=== PATIENT | female | born 1960 | race African-American/Black ===

== ENCOUNTER 2019-06-22 15:14 | Inpatient (IN) | payer OTHER ==
[~2019-06-22] VITALS: Ht 162.6 cm; Wt 63.0 kg
--- NOTE | 2019-06-22 15:14 | NUR ---
PT PLACED IN BED 11 BY EMS.
[2019-06-22 15:19] VITALS: BP 140/89
--- NOTE | 2019-06-22 15:22 | NUR ---
DR. WEAVER IS EVALUATING PT AT BEDSIDE.
--- NOTE | 2019-06-22 15:22 | NUR ---
Telepsych request made for patient to speak with psychiatrist.
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
--- NOTE | 2019-06-22 15:35 | NUR ---
ermd at bedside
--- NOTE | 2019-06-22 15:40 | NUR ---
PSYCHIATRIST IS EVALUATING PT VIA TELEPSYCH.
--- NOTE | 2019-06-22 15:46 | NUR ---
PT REFUSED ANY FURTHER TREATMENT AT THIS TIME INCLUDING BLOOD WORK, URINE ANALYSIS.
--- NOTE | 2019-06-22 15:52 | NUR ---
Glenn sheldon in ED - 06/22/19 at 1859 by ESTEFANIA PT IS BACK FROM CT AND XRAY VIA WHEELCHAIR.
[2019-06-22] MEDS ORDERED: IBUPROFEN 600 MG TAB PO ONE (16:10)
--- NOTE | 2019-06-22 16:19 | NUR ---
PT DECLINED PAIN RX IBUPROFEN, MEDICATION WASTED AND DR. WEAVER MADE AWARE.
[2019-06-22] MEDS ORDERED: NACL 0.9% 1,000 ML IV ONE (16:25)
[2019-06-22 16:49] LABS: BASOPHILS % (AUTO) 0.7 % (0.0-2.0); EOSINOPHILS # (AUTO) 0.1 K/uL (0-0.4); EOSINOPHILS % (AUTO) 1.5 % (0.0-4.0); HEMOGLOBIN 13.4 g/dL (12.0-16.0); LYMPHOCYTES # (AUTO) 1.6 K/uL (2.5-16.5); LYMPHOCYTES % (AUTO) 25.2 % (20.5-51.1); MEAN CORPUSCULAR HEMOGLOBIN 30 pg (27-31); MEAN CORPUSCULAR HGB CONC 34 g/dL (33-37); MEAN CORPUSCULAR VOLUME 88.7 fL (80-94); MONOCYTES # (AUTO) 0.4 K/uL (0.8-1.0); MONOCYTES % (AUTO) 6.6 % (1.7-9.3); NEUTROPHILS # (AUTO) 4.2 K/uL (1.8-7.7); PLATELET COUNT (AUTO) 209 K/uL (140-450); RED BLOOD CELL COUNT(AUTO) 4.51 MIL/uL (4.20-5.40); RED CELL DISTRIBUTION WIDTH 12.8 % (11.6-13.7); WHITE BLOOD COUNT (AUTO) 6.4 K/uL (4.8-10.8)
[2019-06-22 16:55] LABS: APPEARANCE,URINE CLEAR (CLEAR); BILIRUBIN,URINE 2+ (NEGATIVE); BLOOD, URINE 2+ (NEGATIVE); COLOR,URINE YELLOW (YELLOW); LEUKOCYTE ESTERASE ,URINE TRACE (NEGATIVE); NITRITE, URINE NEGATIVE (NEGATIVE); PH,URINE 5.5 (5.0-9.0); UGLUCOSE NEGATIVE (NEGATIVE)
[2019-06-22 16:59] LABS: BARBITURATE, URINE NEGATIVE ng/ml (NEG <=200); BENZODIAZEPINE, URINE NEGATIVE ng/mL (NEG <=200); CANNABINOID, URINE NEGATIVE ng/mL (NEG <=50); COCAINE, URINE NEGATIVE ng/mL (NEG <=300); OPIATE, URINE NEGATIVE ng/mL (NEG <=2000); PHENCYCLIDINE SCREEN,URINE NEGATIVE ng/mL (NEG <=25)
[2019-06-22 17:02] LABS: RBC,URINE 11-20 (MOD) /HPF (0-5)
[2019-06-22 17:06] LABS: ALBUMIN 3.8 g/dL (3.4-5.0); ANION GAP 12.1 (8-16); ASPARTATE AMINOTRANSFERASE 15 U/L (15-37); CARBON DIOXIDE 28.9 mmol/L (21-32); CHLORIDE 107 mmol/L (98-107); CREATININE 0.8 mg/dL (0.6-1.3); GFR ARICAN-AMERICAN 95 mL/min (>90); GLUCOSE 102 mg/dL (74-106); SODIUM SERUM 144 mmol/L (136-145); TOTAL BILIRUBIN 0.3 mg/dL (0.0-1.0); UREA NITROGEN, BLOOD 15 mg/dL (7-18)
[2019-06-22 17:07] LABS: ACETAMINOPHEN < 0.5 ug/ml (10-30); SALICYLATE < 2.8 mg/dL (2.8-20.0)
--- NOTE | 2019-06-22 17:33 | NUR ---
REGULAR DIET ORDERED PER DR. WEAVER ORDER. CALLED DIETARY AND LEFT VOICEMAIL.
[2019-06-22] MEDS ORDERED: SERTRALINE 50 MG TAB PO ONE (17:35)
[2019-06-22] MEDS ORDERED: cefTRIAXone 1,000 MG VIAL ONE (17:42)
--- NOTE | 2019-06-22 18:01 | NUR ---
PT REFUSED TO TAKE ZOLOFT. DR. WEAVER NOTIFIED.
--- NOTE | 2019-06-22 18:06 | NUR ---
ZOLOFT 50MG RETURNED TO [employer].
[2019-06-22] MEDS ORDERED: ONDANSETRON 4 MG/2 ML VIAL IM/IVP PRN (18:20)
[2019-06-22] MEDS ORDERED: DOCUSATE SODIUM 100 MG GELCAP PO PRN (18:20)
--- NOTE | 2019-06-22 18:33 | NUR ---
PT TAKEN TO CT SCAN AND XRAY VIA WHEELCHAIR ASSISTED BY PRAWN TRAWLER HAND.
--- NOTE | 2019-06-22 18:40 | NUR ---
pt back to bed by ct personnel
[2019-06-22 18:52] LABS: PROTHROMBIN TIME 10.5 secs (10.8-13.4)
[2019-06-22 18:57] LABS: MAGNESIUM 2.1 mg/dL (1.8-2.4); PHOSPHORUS 3.4 mg/dL (2.5-4.9); THYROID STIMULATING HORMONE 0.52 uIU/mL (0.34-3.74)
[2019-06-22 19:20] VITALS: BP 181/99
[2019-06-22] MEDS: NACL 0.9% 1,000 ML IV SCH ×2 (19:20→21:17)
--- NOTE | 2019-06-22 19:20 | NUR ---
Patient will be admitted to care of DRUG INDUCED DELIRIUM. Admited to TELEMETRY. Will go to room 110A. Belongings list completed. Report to BREONNA BE.
--- NOTE | 2019-06-22 19:20 | NUR ---
ADMITTED A 58F FROM ER . CAME BY MONIKA. PT IS ON TELE MONITOR. AWAKE, ALERT AND ORIENTED X 3. INITIALLY REFUSED TELE MONITOR BUT ABLE TO PUT IT IN. VITAL SIGNS TAKEN. BP ELEVATED. BUT PT IS ASYMPTOMATIC. WILL LET HER REST FOR FEW MINUTES AND WILL RECHECK BP AGAIN. IVF INFUSING ON THE LT WRIST G#22. REFUSED TO HAVE SKIN CHECK AT THIS TIME. PT REFUSED TO BE ASK FOR ANY MEDICAL HISTORY. PT IN COMFORTABLE POSITION. CALL LIGHT WIHTIN REACH WILL CONTINUE TO MONITOR .
[2019-06-22] MEDS ORDERED: LISINOPRIL 5 MG TAB PO ONE (21:20)
--- NOTE | 2019-06-22 21:20 | NUR ---
BP STILL ELEVATED 170/109. CALLED DR. JUAREZ MADE AWARE. WILL ORDER MEDS.
[2019-06-22] MEDS: ACETAMINOPHEN 325 MG TAB PO PRN (21:50)
--- NOTE | 2019-06-22 21:50 | NUR ---
PT HAD SOME CRACKERS , SOUP AND APPLE JUICE REQUESTED.
--- NOTE | 2019-06-22 22:30 | NUR ---
GOT UP TO THE BATHROOM AND VOIDED. NO C/O ANY MORE HEADACHE NOTED.
[2019-06-22 23:55] VITALS: BP 155/99
--- NOTE | 2019-06-22 23:55 | NUR ---
LATEST BP TAKEN RESULT 155/99. NO C/O ANY PAIN NOTED.
--- NOTE | 2019-06-23 01:30 | NUR ---
PT REQUESTED AGAIN FOR SOME SOUP, JUICE AND PUDDING.
--- NOTE | 2019-06-23 03:50 | NUR ---
MADE ROUNDS. PT IS ASLEEP. NO S/S OF ANY DISCOMFORT NOTED.
[2019-06-23] MEDS: ACETAMINOPHEN 325 MG TAB PO PRN (04:26)
--- NOTE | 2019-06-23 04:26 | NUR ---
PT HAD SOME JUICE AND C/O MILD HEADACHE. MEDICATED WITH TYLENOL PO ORDERED. WILL CONTINUE TO MONITOR.
[2019-06-23 04:28] VITALS: BP 156/78
--- NOTE | 2019-06-23 06:00 | NUR ---
PT IS ASLEEP. WITH IVF INFUSING WELL.
--- NOTE | 2019-06-23 06:25 | NUR ---
PT REFUSED BLOOD DRAW THIS AM. TOLD LIBRARY SERVICES COORDINATOR TO COME BACK LATER FOR PT SOMETIMES CHANGE MIND.
--- NOTE | 2019-06-23 07:10 | NUR ---
ENDORSED PT IN STABLE CONDITION TO AM NURSE FOR CONTINUITY OF CARE.
--- NOTE | 2019-06-23 07:30 | NUR ---
PT AAO, NO SOB NOTED NO C/O PAIN AT THIS TIME. IV TO LT HAND PATENT AND INTACT. CHEST CLEAR, ABDOMEN SOFT, BOWEL SOUNDS PRESENT. NO EDEMA NOTED. INSTRUCTED TO CALL FOR ASSISTANCE, CALL LIGHT WITHIN REACH, VERBALIZED UNDERSTANDING.
--- NOTE | 2019-06-23 08:00 | NUR ---
PT REFUSING BLOOD DRAW, DR. LEAL NOTIFIED.
[2019-06-23 08:30] VITALS: BP 134/81
[2019-06-23] MEDS ORDERED: MORPHINE SULFATE 2 MG/ML SYR IVP PRN ×2 (08:55→09:00)
[2019-06-23] MEDS: LACTOBACILLUS RHAMNOSUS GG 1 EACH CAP PO SCH (09:26)
[2019-06-23] MEDS: LISINOPRIL 5 MG TAB PO SCH (09:28)
[2019-06-23 09:38] LABS: BASOPHILS % (AUTO) 0.3 % (0.0-2.0); EOSINOPHILS # (AUTO) 0.1 K/uL (0-0.4); EOSINOPHILS % (AUTO) 1.6 % (0.0-4.0); HEMATOCRIT 38.2 % (36-48); HEMOGLOBIN 12.8 g/dL (12.0-16.0); LYMPHOCYTES # (AUTO) 1.2 K/uL (2.5-16.5); LYMPHOCYTES % (AUTO) 20.3 % (20.5-51.1); MEAN CORPUSCULAR HEMOGLOBIN 30 pg (27-31); MEAN CORPUSCULAR HGB CONC 33 g/dL (33-37); MEAN CORPUSCULAR VOLUME 88.9 fL (80-94); MONOCYTES # (AUTO) 0.3 K/uL (0.8-1.0); MONOCYTES % (AUTO) 5.4 % (1.7-9.3); NEUTROPHILS # (AUTO) 4.1 K/uL (1.8-7.7); NEUTROPHILS % (AUTO) 72.4 % (42.2-75.2); PLATELET COUNT (AUTO) 187 K/uL (140-450); RED CELL DISTRIBUTION WIDTH 12.9 % (11.6-13.7); WHITE BLOOD COUNT (AUTO) 5.7 K/uL (4.8-10.8)
[2019-06-23 09:48] LABS: CREATININE 0.8 mg/dL (0.6-1.3)
[2019-06-23 09:51] LABS: MAGNESIUM 1.7 mg/dL (1.8-2.4); PHOSPHORUS 3.2 mg/dL (2.5-4.9)
--- NOTE | 2019-06-23 10:00 | NUR ---
PT AGREED FOR BLOOD DRAW.
[2019-06-23 11:17] LABS: CHOL/HDL RATIO 4.2 (1-4.5)
--- NOTE | 2019-06-23 13:15 | NUR ---
PT RESTING. NO SOB NOTED. NO C/O PAIN AT THIS TIME. ENDORSED TO REJI RAVI FOR CONTINUITY OF CARE.
[2019-06-23] MEDS ORDERED: MAG SULF 2000 MG/WATER PREMIX 50 ML IV SCH (15:00)
--- NOTE | 2019-06-23 15:00 | NUR ---
PT SEEN BY DR. BOSCH. PT IS OK FOR D/C HOME WHEN MEDICALLY CLEARED. DR. LEE NOTIFIED, STATED PT WILL BE DISCHARGED HOME TOMORROW.
[2019-06-23 16:00] VITALS: BP 156/84
--- NOTE | 2019-06-23 19:23 | NUR ---
BEDSIDE SHIFT REPORT GIVEN TO TENN[employer]ENT[employer] MANAGER NURSE FOR CONTINUATION OF CARE.
--- NOTE | 2019-06-23 19:24 | NUR ---
RECEIVED PT IN STABLE CONDITION FROM AM NURSE. MED SURG PT. WITH NO S/S OF ANY DISCOMFORT NOR PAIN NOTED AT THIS TIME. PT STILL NEED IVF BUT REFUSED AT THIS TIME. HL ON THE LT WRIST G#22. CLEAR AND PATENT. BED ON LOW POSITION . SIDE RAILS UP X2. CALL LIGHT PLACED WITHIN EASY REACH. WILL CONTINUE TO MONITOR.
--- NOTE | 2019-06-23 21:00 | NUR ---
PT AGAIN REFUSED TO HAVE THE IVF . SHE SAID IT BOTHERS HER. SHE SAID SHE WANTS TO GET SOME SLEEP.
--- NOTE | 2019-06-23 23:00 | NUR ---
PT ASLEEP. NO S/S OF ANY DISCOMFORT NOTED.
--- NOTE | 2019-06-24 00:05 | NUR ---
TRIED TO TAKE VITAL SIGNS. PT REFUSED . SHE SAID SHE JUST WANTS TO SLEEP. WILL TRY IN A LATER TIME. WILL CONTINUE TO MONITOR.
--- NOTE | 2019-06-24 02:00 | NUR ---
SLEEPING . WITH NO S/S OF ANY DISCOMFORT NOR PAIN NOTED.
[2019-06-24] MEDS: NACL 0.9% 1,000 ML IV SCH (03:36)
[2019-06-24 04:00] VITALS: BP 148/80
--- NOTE | 2019-06-24 04:00 | NUR ---
GOT UP TO THE BATHROOM. VOIDED. THEN ABLE TO TAKE VITAL SIGNS THIS AM. STABLE. NO C/O PAIN NOTED.
--- NOTE | 2019-06-24 05:45 | NUR ---
BLOOD WAS DRAWN THIS AM . WILL FOLLOW UP RESULTS.
[2019-06-24 06:59] LABS: ANION GAP 12.9 (8-16); CARBON DIOXIDE 28.2 mmol/L (21-32); CREATININE 0.8 mg/dL (0.6-1.3); POTASSIUM 4.1 mmol/L (3.5-5.1)
[2019-06-24 07:05] LABS: BASOPHILS # (AUTO) 0.1 K/uL (0.00-0.22); BASOPHILS % (AUTO) 0.9 % (0.0-2.0); EOSINOPHILS # (AUTO) 0.1 K/uL (0-0.4); HEMATOCRIT 39.1 % (36-48); HEMOGLOBIN 13.2 g/dL (12.0-16.0); LYMPHOCYTES # (AUTO) 1.5 K/uL (2.5-16.5); LYMPHOCYTES % (AUTO) 26.9 % (20.5-51.1); MEAN CORPUSCULAR HEMOGLOBIN 30 pg (27-31); MEAN CORPUSCULAR HGB CONC 34 g/dL (33-37); MEAN CORPUSCULAR VOLUME 89.7 fL (80-94); MONOCYTES # (AUTO) 0.4 K/uL (0.8-1.0); MONOCYTES % (AUTO) 6.6 % (1.7-9.3); NEUTROPHILS # (AUTO) 3.6 K/uL (1.8-7.7); NEUTROPHILS % (AUTO) 63.6 % (42.2-75.2); PLATELET COUNT (AUTO) 186 K/uL (140-450); RED BLOOD CELL COUNT(AUTO) 4.36 MIL/uL (4.20-5.40); RED CELL DISTRIBUTION WIDTH 13.1 % (11.6-13.7); WHITE BLOOD COUNT (AUTO) 5.6 K/uL (4.8-10.8)
[2019-06-24 07:08] LABS: MAGNESIUM 2.1 mg/dL (1.8-2.4); PHOSPHORUS 3.3 mg/dL (2.5-4.9)
--- NOTE | 2019-06-24 07:10 | NUR ---
RECEIVED REPORT FROM DIRECTOR OF CARDIOLOGY SERVICE LINE NURSE DEBORAH-RN. PT RESTING IN BED, AOX4, ON ROOM AIR WITH IV SITE LEFT WRIST #22G- REFUSING IV USE. DISCUSSED PLAN OF CARE AND PT VERBALIZED UNDERSTANDING. NO S/S OF RESPIRATORY DISTRESS OR DISCOMFORT NOTED AT THIS TIME. WILL CONTINUE TO MONITOR.
--- NOTE | 2019-06-24 07:10 | NUR ---
ENDORSED PT IN STABLE CONDITION TO AM NURSE FOR CONTINUITY OF CARE.
[2019-06-24] MEDS: LACTOBACILLUS RHAMNOSUS GG 1 EACH CAP PO SCH (08:43)
[2019-06-24] MEDS: LISINOPRIL 5 MG TAB PO SCH (08:43)
--- NOTE | 2019-06-24 08:43 | NUR ---
SCHEDULED MEDICATIONS GIVEN AND TOLERATED WELL. PT REFUSED ROCEPHIN. DR. CROW AWARE. NO S/S OF RESPIRATORY DISTRESS OR DISCOMFORT NOTED AT THIS TIME. WILL CONTINUE TO MONITOR.
[2019-06-24] MEDS: ACETAMINOPHEN 325 MG TAB PO PRN (08:53)
--- NOTE | 2019-06-24 08:53 | NUR ---
PT C/O HEADACHE. TYLENOL GIVEN AND TOLERATED WELL. NO S/S OF RESPIRATORY DISTRESS OR DISCOMFORT NOTED AT THIS TIME. WILL CONTINUE TO MONITOR.
--- NOTE | 2019-06-24 08:58 | NUR ---
PATIENT HAS BEEN SCREENED AND CATEGORIZED LOW NUTRITION RISK. PATIENT WILL BE SEEN WITHIN 7 DAYS OF ADMISSION. 06/29/[address]
[2019-06-24] MEDS ORDERED: SERTRALINE 50 MG TAB PO SCH (09:00)
[2019-06-24 10:10] VITALS: BP 151/89
--- NOTE | 2019-06-24 11:16 | NUR ---
Late entry. Confirmed with RN that 0.9 NS IV completed at 1730
--- NOTE | 2019-06-24 11:42 | NUR ---
DISCHARGE PLANNING: THIS IS A 58 Y/O FEMALE PATIENT FROM HOME, WHO WAS BIBA AUDITORY HALLUCINATIONS X2 WEEKS. PAST MEDICAL HISTORY INCLUDE HTN. INITIAL DIAGNOSIS OF PSYCHOSIS. CURRENT LABS WNL. UDS POSITIVE FOR AMPHETAMINES. SEEN BY PSYCHE- DOES NOT MEET LPS CRITERIA FOR LPS HOLD. FOR DC BACK TO HOME TODAY.
--- NOTE | 2019-06-24 11:47 | NUR ---
PT SIGNED DC PAPERWORK, IV REMOVED, ID BAND REMOVED. SAM OLMSTEAD WHEELED PT TO FRONT LOBBY WHERE TAXI CAB AWAITING PT. PT STABLE AT THIS TIME.
--- NOTE | 2019-06-24 12:04 | NUR ---
Manager Data Warehousing Note: Patient is a 58-year-old female admitted for psychosis. Patient has a PMHX of hypertension. Patient was admitted from home where she lives with roommates. SW attempted to conduct assessment but patient was being discharged. No further needs identified.
--- NOTE | 2019-06-25 10:52 | NUR ---
PCP Appointment: OCTAVIO contacted Arti from Dr. Jodi Robbins' office [phone] to schedule hospital follow up for patient. Per Arti, patient has already made a telemedicine appointment with Dr. Jodi Robbins on 06/27/2019 at 1030. No further needs identified.
== END 2019-06-24 11:50 | disposition home or self-care (01) | DRG 463 ==
LOC: MED 15:14 → MTU 18:16
PROVIDERS: ADMIT General Practice; ATTEND General Practice
DX: N39.0 Urinary tract infection, site not specified (principal); E44.0 Moderate protein-calorie malnutrition; F23 Brief psychotic disorder; F15.10 Other stimulant abuse, uncomplicated; Z68.23 Body mass index [BMI] 23.0-23.9, adult; E83.42 Hypomagnesemia; G47.00 Insomnia, unspecified; Z79.899 Other long term (current) drug therapy; F43.10 Post-traumatic stress disorder, unspecified; I10 Essential (primary) hypertension; F32.9 Major depressive disorder, single episode, unspecified; F15.159 Other stimulant abuse with stimulant-induced psychotic disorder, unspecified; E86.0 Dehydration; R51 Headache
CPT/HCPCS: 36415; 70450; 71045; 80048; 80053; 80305; 81001; 81025; 82140; 83036; 83605; 83735; 83880; 84100; 84134; 84443; 84484; 85025; 85610; 85730; 87081; 87086; 96361; 96365; 99285; G0480; G0482; J0696; J2270; J3475; J7030; J7060; Q0092

== ENCOUNTER 2019-10-16 15:08 | Emergency (ER) | payer OTHER ==
[~2019-10-16] VITALS: Ht 162.6 cm; Wt 65.8 kg
[2019-10-16 15:11] VITALS: BP 159/93
--- NOTE | 2019-10-16 15:14 | NUR ---
Pt taken to bed 12
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
[2019-10-16] MEDS ORDERED: LORazepam 1 MG TAB PO ONE (15:30)
--- NOTE | 2019-10-16 15:33 | NUR ---
ATIVAN GIVEN PER ORDERS
--- NOTE | 2019-10-16 16:49 | NUR ---
Spoke to pts brother-- Enrique [phone] states he cannot pick pt up
--- NOTE | 2019-10-16 17:30 | NUR ---
[facility] called for pt. ETA 45 minutes
--- NOTE | 2019-10-16 18:56 | NUR ---
PT WAITING ON TAXI
--- NOTE | 2019-10-16 18:56 | NUR ---
Patient discharged with v/s stable. Written and verbal after care instructions given and explained. Patient verbalized understanding. Ambulatory with steady gait. All questions addressed prior to discharge. Advised to follow up with PMD.
--- NOTE | 2019-10-16 19:12 | NUR ---
Followed up with taxi service-- 20 min eta for arrival of trolley coach driver
[2019-10-16 20:00] VITALS: BP 134/86
--- NOTE | 2019-10-16 20:10 | NUR ---
PT GIVEN BELONGINGS AND DC. PT GIVEN TAXI VOUCHER. PT GIVEN RIDE BACK TO HALF WAY HOUSE.Patient discharged with v/s stable. Written and verbal after care instructions given and explained. Patient verbalized understanding. Ambulatory to TAXI. All questions addressed prior to discharge. Advised to follow up with PMD.
== END 2019-10-16 20:10 | disposition home or self-care (01) ==
LOC: MED 15:08
DX: F41.9 Anxiety disorder, unspecified (principal); I10 Essential (primary) hypertension
CPT/HCPCS: 99283